=== PATIENT | male | born 1990 | race Caucasian/White ===

== ENCOUNTER → 2021-01-10 12:30 | Outpatient (BNVA) | payer OTHER, SELFPAY | PROVIDERS: Visit Provider Emergency Medicine | DX: Z20.822 Contact with and (suspected) exposure to COVID-19 (principal) | CPT/HCPCS: 87635 ==

== ENCOUNTER 2024-08-30 12:50 | Outpatient (CLI) | payer MEDICAID, SELFPAY ==
--- NOTE | 2024-08-30 12:58 | XRR_ITS ---
PROCEDURE INFORMATION: Exam: XR Left Foot Exam date and time: 08/30/2024 1:05 PM Age: 34 years old Clinical indication: Injury or trauma; Fall; Blunt trauma and sprain or strain; Foot; Left; Additional info: M79.672 - pain in left foot TECHNIQUE: Imaging protocol: Radiologic exam of the left foot. Views: 3 or more views. AP Oblique Lateral COMPARISON: No relevant prior studies available. FINDINGS: Bones/joints: No visualized evidence for acute bony fracture or dislocation. No significant degenerative changes identified. Bony structures appear otherwise unremarkable. Soft tissues: Diffuse moderate to severe soft tissue edema. Most severe soft tissue edema within the mid and distal left foot. Notes: If there is further concern, recommend follow-up radiographs, CT or MRI for complete assessment. XR/XR foot LT min 3V* [id number] IMPRESSION: 1. Moderate to severe soft tissue edema. 2. No acute bony abnormality identified radiographically.
== END 2024-08-30 12:51 | disposition home or self-care (01) ==
PROVIDERS: PCP Nurse Practitioner Family; Visit Provider Emergency Medicine
DX: M70.972 Unspecified soft tissue disorder related to use, overuse and pressure, left ankle and foot (principal)
CPT/HCPCS: 73630